=== PATIENT | female | born 1965 | race Caucasian/White ===

== ENCOUNTER 2023-01-17 17:20 | Emergency (ER) | payer BC ==
[~2023-01-17] VITALS: Ht 167.6 cm; Wt 81.8 kg
[2023-01-17 18:48] LABS: Urine Bacteria NONE SEEN /hpf (None Seen); Urine Blood Negative /uL (Negative); Urine Mucus FEW (None Seen); Urine WBC 8 /hpf (0 - 5)
[2023-01-17] MEDS ORDERED: NITR-52 PO (19:12)
[2023-01-17 19:36] VITALS: BP 148/85
== END 2023-01-17 19:39 | disposition home or self-care (01) ==
LOC: ER 17:20
DX: N39.0 Urinary tract infection, site not specified (principal); E11.9 Type 2 diabetes mellitus without complications; E78.5 Hyperlipidemia, unspecified; Z90.710 Acquired absence of both cervix and uterus; Z88.2 Allergy status to sulfonamides
CPT/HCPCS: 81001

== ENCOUNTER 2023-10-30 19:40 | Emergency (ER) | payer BC ==
[~2023-10-30] VITALS: Ht 167.6 cm; Wt 81.8 kg
[~2023-10-30 19:40] MED LIST: NITR-52 PO
[2023-10-30 21:05] LABS: Urine Bacteria NONE SEEN /hpf (None Seen); Urine Blood Negative /uL (Negative); Urine Clarity HAZY (Clear); Urine Color Yellow (Yellow); Urine Mucus FEW (None Seen); Urine Protein, UAD 1+ (Negative); Urine Specific Gravity 1.046 (1.001-1.035); Urine WBC 139 /hpf (0 - 5); Urine pH 5.5 (5.0-8.0)
[2023-10-30] MEDS: SODIUM CHLORIDE 0.9% 1,000 ML IV ONE (22:42)
[2023-10-30] MEDS: ONDANSETRON ODT 4 MG TAB PO ONE (22:44)
[2023-10-30] MEDS ORDERED: NITR-52 PO (22:54)
[2023-10-30] MEDS: cefTRIAXone 1GM/50ML D5W 50 ML IV ONE (23:03)
[2023-10-30] MEDS: MORPHINE SULFATE INJ 2 MG/ml SYRG IV ONE (23:05)
[2023-10-31 00:19] VITALS: TEMP 98.4; O2SAT 95
[2023-10-31 00:34] VITALS: BP 152/95; PULSE 101; RESP 18
[2023-10-31] MEDS: MORPHINE SULFATE INJ 2 MG/ml SYRG IM ONE (00:34)
== END 2023-10-31 00:44 | disposition home or self-care (01) ==
LOC: ER 19:40
DX: N39.0 Urinary tract infection, site not specified (principal); E11.9 Type 2 diabetes mellitus without complications; E78.5 Hyperlipidemia, unspecified; Z98.890 Other specified postprocedural states; Z90.710 Acquired absence of both cervix and uterus; Z88.0 Allergy status to penicillin; Z88.8 Allergy status to other drugs, medicaments and biological substances; Z79.899 Other long term (current) drug therapy
CPT/HCPCS: 81001; 96365; 96372; 96375; 99284; J0696; J2270; J7030; Q0162